=== PATIENT | female | born 1960 | race Two or more races ===

== ENCOUNTER 2021-04-24 18:29 | Emergency (ER) | payer SELFPAY ==
[~2021-04-24] VITALS: Ht 167.6 cm; Wt 99.8 kg
[2021-04-24 19:17] VITALS: BP 146/75
== END 2021-04-24 22:09 | disposition left against medical advice (07) ==
LOC: EDBD 18:29 → ER 18:34
DX: R07.89 Other chest pain (principal); R06.02 Shortness of breath; R11.2 Nausea with vomiting, unspecified; R19.7 Diarrhea, unspecified; Z53.21 Procedure and treatment not carried out due to patient leaving prior to being seen by health care provider